=== PATIENT | male | born 1960 | race Caucasian/White ===

== ENCOUNTER 2021-04-29 12:35 | Emergency (ER) | payer OTHER, SELFPAY ==
[2021-04-29 12:40] VITALS: BP 194/92; PULSE 88; RESP 18; TEMP 36.6; O2SAT 100
--- NOTE | 2021-04-29 12:50 | ECG_ITS ---
Measurements Intervals [place] Rate: 82 P: 90 CT: 168 QRS: 27 QRSD: 106 T: 68 QT: 373 QTc: 437 Interpretive Statements SINUS RHYTHM ATRIAL PREMATURE COMPLEXES BASELINE ARTIFACT- I, II, AVR, AVL, AVF BORDERLINE ECG Electronically Signed On 04-29-2021 13:32:46 CDT by Estevan Oshea D.O.
--- NOTE | 2021-04-29 12:56 | ED.DIZZY ---
HPI - Dizziness General Chief Complaint: Dizziness Stated Complaint: DIZZY Time Seen by Provider: 04/29/21 12:36 Source: patient Mode of arrival: ambulatory Limitations: no limitations History of Present Illness HPI Narrative: 60-year-old male presents to [facility] with complaints of elevated blood pressure and intermittent dizziness since last evening. Patient reports that he checked his blood pressure last evening at home and it was running 160-180 systolically over 90s diastolically. Patient denies chest pain, shortness of breath, blurred vision, fever, bodies, chills, nausea, vomiting or diarrhea. Patient denies family history of cardiac events or strokes. Patient does smoke. Patient denies current dizziness. Patient reports that he has been under increased amount of stress due to his work. MD elicited complaint: dizziness History of similar symptoms: No Relieving factors: nothing Associated symptoms: denies other symptoms Related Data Home Medications Medication Instructions Recorded Confirmed No Home Medications 04/29/21 04/29/21 Allergies Allergy/AdvReac Type Severity Reaction Status Date / Time No Known Allergies Allergy Unverified 06/26/12 06:56 Review of Systems Constitutional: Constitutional: Denies chills, Denies fatigue, Denies fever(s) and Denies weakness Eyes: Eyes: Denies change in vision and Denies photophobia ENT: Denies sore throat Cardiovascular: Cardiovascular: Denies chest pain, Denies rapid heart rate, Denies radiating jaw, neck or arm pain and Denies slow heart rate Respiratory: Respiratory: Denies chest congestion, Denies cough, Denies dyspnea and Denies wheezing Gastrointestinal: Gastrointestinal: Denies abdominal pain, Denies diarrhea, Denies nausea and Denies vomiting Musculoskeletal: Musculoskeletal: Denies back pain Neurologic: Denies vertigo, Reports dizziness, Denies syncope and Denies numbness PMFSH Past Medical History Medical History Basal cell carcinoma of skin of trunk Extrinsic asthma, unspecified Syncope and collapse Social History Social History Smoking status: Smoker, status unknown Alcohol intake: current Comments At time of signature, I agree with nursing past medical, surgical, social and family history. There is no relevant family history pertinent to the presenting complaint. Exam Const: General: no acute distress Nutritional Appearance: well nourished Orientation/consciousness: patient oriented x3 Neck: Neck: normal visual inspection Resp: Effort & Inspection: normal respiratory effort, not labored and not tachypneic Auscultation: clear to auscultation bilaterally Cardio: Rate: regular rate, not bradycardic and not tachycardic Rhythm: regular rhythm and regular rhythm Heart sounds: no murmurs Skin: General skin exam: normal color, no jaundice and no pallor Rashes: no rashes Wounds: no wounds Neuro: General: patient oriented x3, moves all extremities and no meningeal signs Speech: normal speech Extrem: General: normal to inspection Psych: Appearance: grossly normal Mental Status: mental status grossly normal Affect: normal affect Attitude: cooperative Thought content: Yes Normal thought content present Course Vital Signs Vital signs: Vital Signs Temperature 36.6 C 04/29/21 12:40 Pulse Rate 88 04/29/21 12:40 Respiratory Rate 18 04/29/21 12:40 Blood Pressure 194/92 H 04/29/21 12:40 Pulse Oximetry 100 04/29/21 12:40 Temperature 36.6 C 04/29/21 12:40 Pulse Rate 88 04/29/21 12:40 Respiratory Rate 18 04/29/21 12:40 Blood Pressure 194/92 H 04/29/21 12:40 Pulse Oximetry 100 04/29/21 12:40 MDM - Dizziness MDM Narrative Medical decision making narrative: Attempted to call patient's primary care provider but office is currently closed for lunch. Informed patient due to symptoms of kiley
== END 2021-04-29 13:00 | disposition left against medical advice (07) ==
PROVIDERS: Emergency Provider Nurse Practitioner Family; PCP Family Medicine
DX: R03.0 Elevated blood-pressure reading, without diagnosis of hypertension (principal); Z85.828 Personal history of other malignant neoplasm of skin; J45.909 Unspecified asthma, uncomplicated
CPT/HCPCS: 93005; 99213; G0463

== ENCOUNTER → 2022-10-19 08:44 | Outpatient (CLI) | payer OTHER, SELFPAY ==
--- NOTE | ~2022-10-19 | CT_ITS ---
EXAMINATION: CT lung screening DATE: 10/19/2022 09:03 INDICATION: Personal history of nicotine dependence, current smoker with 40 pack year history TECHNIQUE: Computed tomography (CT) of the chest was performed without intravenous contrast. The dose -length product (DLP) was 186.48 mGy-cm. Automated exposure control and iterative reconstruction tech Divergence were employed. COMPARISON: None FINDINGS: There is mild emphysema. There is a 3 mm nodule of the right upper lobe. There is mild atel ectasis anteriorly in the upper lobes. No pleural effusion or pneumothorax. No pathologically enlarge d thoracic lymph nodes are identified. The heart size is normal. There is lipomatous hypertrophy of t he interatrial septum. Calcified coronary artery atherosclerosis is noted. There is a compression fra cture of T5. There is mild nodularity of the liver surface, consistent with cirrhosis. IMPRESSION: 1. Lung-RADS category 2: Benign appearance or behavior. Continue annual screening with noncontrast lo w-dose chest CT in 12 months. Reviewed, dictated and finalized at location L. NICAL SALES SUPPORT MANAGER IMPRESSION: 1. Lung-RADS category 2: Benign appearance or behavior. Continue annual screeni ng with noncontrast low-dose chest CT in 12 months.
== END ==
PROVIDERS: PCP Family Medicine; Visit Provider Family Medicine
DX: Z12.2 Encounter for screening for malignant neoplasm of respiratory organs (principal); F17.210 Nicotine dependence, cigarettes, uncomplicated
CPT/HCPCS: 71271

== ENCOUNTER 2025-04-28 00:33 | Day surgery (SDC) | payer OTHER, SELFPAY ==
[2025-04-22 09:05] VITALS: BMI 31.1
--- OUTSIDE RECORDS SUMMARY | 2025-04-28 00:39 | XMS_ITS | Referral Summary ---
Author Organization [address] [address] Care Team Providers Care Head Start Teacher Name Role Phone Unknown, Notinfile Primary Care Provider Unavail able Encounters Date Type Department Care Team Description 04/25/2025 12:30 PM CDT Office Visit [facility] at [address] [id number] Antonella Lu NP Right acute serous otitis media, recurrence not specified (Primary Dx); Elevated blood pressure reading in office with diagnosis of hypertension from Last 3 Months Allergies No known active allergies Medications lisinopriL (PRINIVIL,ZESTR IL) 10 mg tablet Take 1 tablet (10 mg total) by mouth daily Active fluticasone propionate (FLONASE) 50 mcg/actuation nasal sprayIndication s:Right acute serous otitis media, recurrence not specified Administer 2 sprays into each nostril daily 1 each Active Active Problems No known active problems Social History Tobacco Use Types Packs/Day Years Used Date Smoking Tobacco: Every Day Cigarettes Tobacco Cessation:Ready to Q uit: Yes Sex and Gender Information Value Date Recorded Sex Assigned at Not on file Legal Sex Male 7:45 AM CDT Gender Identity Not on file Sexual Orientation Not on file Last Filed Vital Signs Vital Sign Reading Time Taken Comments Blood Pressure 176/82 04/25/2025 12:21 PM CDT Pulse 60 04/25/2025 12:02 PM CDT Temperature 36.8 C (98.2 F) 04/25/2025 12:02 PM CDT Respiratory Rate 18 04/25/2025 12:0 2 PM CDT Oxygen Saturation 96% 04/25/2025 12: 02 PM CDT Inhaled Oxygen Concentration - - Weight 107.5 kg (236 lb 14.4 oz) 2024 12:02 PM CDT Height - - Body Mass Index - - Plan of Treatment Not on file Insurance [facility] ADVANTAGE CHOICE PPO Care Teams Head Start Teacher Relationship Specialty Start Date End Date Unknown, Notinfile PCP - General 04/25/25
--- OUTSIDE RECORDS SUMMARY | 2025-04-28 00:39 | XMS_ITS | Clinical Summary ---
Author Organization [facility] Address [address] [place] [address] Care Team Providers Care Day Care Center Director Name Role Phone Unavailable Primary Care Provider Unavailabl e Immunizations Immunization Administration Dates Next Due Covid-19, Mrna, Lnp-s, Pf, 30 Mcg/0.3 Ml Dose (P fizer) 09/09/2021 Social History Tobacco Use Types Packs/Day Years Used Date Smoking Tobacco: Never Assessed Sex and Gender Information Value Date Recorded Sex Assigned at Not on file Legal Sex Male 2:01 PM LEGAL ADMINISTRATIVE ASSISTANT Gender Identity Not on file Sexual Orientation Not on file Plan of Treatment Health Maintenance Due Date Last Done Comments Hepatitis C Virus (HCV) Screening 1960 TdaP Immunization 1960 Colonoscopy 2004 Colorectal Cancer Screening 2004 Cologuard 2009 Immunochemical Fecal Occult Blood 2009 Pneumococcal Immunization (5 0+ years) (1 of 1 - PCV) 2009 Zoster Immunization (1 of 2) 2009 PSA Discussion 2014 Influenza Immunization (#1) 2024 SARS-COV-2 Immunization ( season) 2024 09/09/2021, 01/01/2021, 12/07/2020 Respiratory Syncytial Virus (RSV) Immunization (Adult) (1 - 1-dose 75+ series) 2034 Hepatitis B Immunization Aged Out No longer eligible based on patient's age to complete this topic Meningococcal Immunization (ACWY) Aged Out No longer eligible b ased on patient's age to complete this topic Pneumococcal Immunization Combined Aged Out No longer eligible b ased on patient's age to complete this topic Rotavirus Immunization Aged Out No lo nger eligible based on patient's age to complete this topic
--- OUTSIDE RECORDS SUMMARY | 2025-04-28 00:39 | XMS_ITS | Clinical Summary ---
Author Organization [facility] [address] [address] Care Team Providers Care Independent Agent Music Education Name Role Phone Unknown, Notinfile Primary Care Provider Unavail able Allergies No known active allergies Medications lisinopriL (PRINIVIL,ZESTR IL) 10 mg tablet Take 1 tablet (10 mg total) by mouth daily Active fluticasone propionate (FLONASE) 50 mcg/actuation nasal sprayIndication s:Right acute serous otitis media, recurrence not specified Administer 2 sprays into each nostril daily 1 each 5 Active Active Problems No known active problems Encounters Date Type Department Care Team Description 04/25/2025 12:30 PM CDT Office Visit [facility] at [address] [phone] Antonella Lu NP Right acute serous otitis media, recurrence not specified (Primary Dx); Elevated blood pressure reading in office with diagnosis of hypertension from Last 3 Months Social History Tobacco Use Types Packs/Day Years Used Date Smoking Tobacco: Every Day Cigarettes Tobacco Cessation:Ready to Q uit: Yes Sex and Gender Information Value Date Recorded Sex Assigned at Not on file Legal Sex Male 7:45 AM CDT Gender Identity Not on file Sexual Orientation Not on file Obstetrics History Last Filed Vital Signs Vital Sign Reading [...] Mass Index - - Plan of Treatment Health Maintenance Due Date Last Done Comments Colon Cancer Screening-Colonoscopy 1959 Depression Screening 1959 Fall Risk Assessment 1959 Hepatitis C Screening 1959 Prostate Cancer Screening-PSA 1959 DTaP/Tdap/Td Vaccine (1 - Tdap) 1970 Hepatitis B Screening 1977 Pneumococcal vaccine 65+ (1 of 2 - PCV) 1978 Zoster Vaccine (1 of 2) 2009 Abdominal Aortic Aneurysm (A AA) Screen 2024 Covid-19 Vaccine ( season) 2024 09/09/2021, 01/01/2021, 12/07/2020 Well Visit 65+ 2024 Influenza Vaccine (#1) 2025 10/10/[address] [place] [address] ADVANTAGE CHOICE PPO Care Teams Independent Agent Music Education Relationship Specialty Start Date End Date Unknown, Notinfile PCP - General 04/25/25
[2025-04-28 07:59] VITALS: BP 166/109; PULSE 87; RESP 18; TEMP 36; O2SAT 100
[2025-04-28] MEDS: LACTATED RINGERS 1,000 ML 150 ML IV CONT (08:14)
--- NOTE | 2025-04-28 08:45 | P.PNAN_ITS ---
Anes - Initial Pre Proc Eval Procedure: Operation Date: 04/28/25 09:15 Proposed Procedures p Screening Colonoscopy - Ronald Pringle MD Date/Time: 04/28/25 08:45 Surgeon: Ronald Pringle MD Pre Op Diagnosis: Encounter for screening for malignant neoplasm of Patient Data Age: 64 Gender: M Height: 1.83 m Weight: 105 kg Last Vital Signs Temp 96.8 F L 04/28/25 07:59 Pulse 87 04/28/25 07:59 Resp 18 04/28/25 07:59 BP 166/109 H 04/28/25 07:59 Pulse Ox 100 04/28/25 07:59 O2 Del Method Room Air 04/28/25 07:59 Allergies Allergy/AdvReac Type Severity Reaction Status Date / Time No Known Allergies Allergy Verified 04/28/25 07:57 Home Medications ?Medication ?Instructions ?Recorded ?Confirmed ?Type calcipotriene 0.005 % topical cream 1 applic topical QHS #120 grams 10/10/24 04/28/25 Rx lisinopril 10 mg tablet 10 mg PO DAILY #90 tabs 10/10/24 04/28/25 Rx triamcinolone acetonide 0.1 % 1 applic topical QID #80 grams 10/10/24 04/28/25 Rx topical cream budesonide-formoterol HFA 160 2 puff inhalation Q12H PRN 04/22/25 04/22/25 History mcg-4.5 mcg/actuation aerosol shortness of breath inhaler (Symbicort) Patient hx anesthesia problems: none Family hx anesthesia problems: none Results Review: All pre-operative results and documents have been reviewed as part of the pre- operative evaluation. [facility] Past Medical History Medical History HTN (hypertension), benign Basal cell carcinoma of skin of trunk Extrinsic asthma, unspecified Syncope and collapse Social History Social History Smoking packs per day: 0.25 Smoking cigarettes per day: 5.0 Smoking status: Current every day smoker Alcohol intake: former Lack of Transportation: No Lack of Food: Never True Current Housing: I Have Housing Concerned About Future Housing: No Difficulty Paying Gas/Electric Bills: No Difficulty Paying for Meds: No Currently Unemployed: No Education: Bachelor's Degree Difficulty w/ Childcare or Family Care: No Anes - Eval Final PreProcedure Day of Procedure 04/28/25 08:45 Patient weight: obese Lungs: normal air movement Airway: Mallampati scale class III Neurological: alert and oriented Last oral intake: >/= 8 hours ASA classification: III Emergent: no Anesthetic plan: proceed Anesthesia type and monitoring: general GIVS and standard monitoring Results Review: All pre-operative results and documents have been reviewed as part of the pre- operative evaluation. HTN, pre DM, asthma, active smoker 5-6 cigs/day, smoked at 630 am. Pt can mow grass, no cp or sob. Informed Consent: The patient's anesthetic plan and its attendant risks and benefits were discussed with the patient/family/POA. Questions were solicited and answers provided to the satisfaction of the patient/family/POA.
--- NOTE | 2025-04-28 08:58 | SUR.PREOP ---
0830: DR JAMES MADE AWARE OF BLOOD PRESSURE 166/109, NO NEW ORDERS, DR WHEAT PT.
--- NOTE | 2025-04-28 09:04 | PM.IMHP ---
H&P: HPI History of Present Illness Date/Time: 04/28/25 09:04 Chief Complaint: Screening colonoscopy Narrative: This is the patient's first colonoscopy. There are no GI symptoms and there is no family history of colorectal cancer. Review of Systems Review of Systems: All systems reviewed & are unremarkable except as noted in HPI and below [facility] Past Medical History Medical History HTN (hypertension), benign Basal cell carcinoma of skin of trunk Extrinsic asthma, unspecified Syncope and collapse Social History Social History Smoking packs per day: 0.25 Smoking cigarettes per day: 5.0 Smoking status: Current every day smoker Alcohol intake: former Lack of Transportation: No Lack of Food: Never True Current Housing: I Have Housing Concerned About Future Housing: No Difficulty Paying Gas/Electric Bills: No Difficulty Paying for Meds: No Currently Unemployed: No Education: Bachelor's Degree Difficulty w/ Childcare or Family Care: No Meds Home Medications and Allergies Home Medications ?Medication ?Instructions ?Recorded ?Confirmed ?Type calcipotriene 0.005 % topical cream 1 applic topical QHS #120 grams 10/10/24 04/28/25 Rx lisinopril 10 mg tablet 10 mg PO DAILY #90 tabs 10/10/24 04/28/25 Rx triamcinolone acetonide 0.1 % 1 applic topical QID #80 grams 10/10/24 04/28/25 Rx topical cream budesonide-formoterol HFA 160 2 puff inhalation Q12H PRN 04/22/25 04/22/25 History mcg-4.5 mcg/actuation aerosol shortness of breath inhaler (Symbicort) Allergies Allergy/AdvReac Type Severity Reaction Status Date / Time No Known Allergies Allergy Verified 04/28/25 07:57 Vital Signs Vital Signs - 24 hr 04/28/25 07:59 Temperature 96.8 F L Pulse Rate 87 Respiratory Rate 18 Blood Pressure 166/109 H Pulse Oximetry 100 Oxygen Delivery Room Air Exam Const: General: cooperative and healthy appearing Resp: Effort & Inspection: normal respiratory effort and able to speak in complete sentences Auscultation: clear to auscultation bilaterally Cardio: Rate: regular rate Rhythm: regular rhythm GI: Inspection: normal to inspection GI Palp: No No hepatosplenomegaly present Auscultation: normal bowel sounds Rectal Exam: deferred Skin: General skin exam: normal color Psych: Appearance: grossly normal Mental Status: mental status grossly normal Assessment and Plan Assessment and plan (1) Colon cancer screening: Code(s): Z12.11 - Encounter for screening for malignant neoplasm of colon Status: Acute Assessment and Plan: The patient is deemed a good candidate for the procedure. Consent signed. Will proceed.
[2025-04-28 10:30] VITALS: BP 142/84; PULSE 72; RESP 22; O2SAT 100
--- NOTE | 2025-04-28 10:34 | S_PTH ---
PATIENT: Deonte Pagan LOC: [facility] U#:[id number] AGE/SX: 64/M ROOM: RE04/28/[address]: Ronald Pringle MD : 1960 BED: DIS: 04/28/2025 SPEC #: [id number] RECD: 04/28/25 11:00 STATUS: ARTURO RE #: [id number] OSCAR: 04/28/25 10:[address]: Ronald Pringle DEPT: [facility] [place] Surgical RECD BY: Tej Stark ENTERED: 04/28/25 11:04 SP TYPE: Surgical OTHR DR: Haris Elizabeth MD Tissues: A - Colon Polypectomy B - Colon Polypectomy C - Rectal Polyp D - Rectal Polyp E - Colon Polypectomy F - Colon Polypectomy G - Colon Polypectomy H - Colon Polypectomy Procedures: Hematoxylin and Eosin Stain Gross and Microscopic Level 4
[2025-04-28 10:40] VITALS: BP 146/85; PULSE 72; RESP 22; O2SAT 100
[2025-04-28 10:50] VITALS: BP 143/83; PULSE 69; RESP 18; O2SAT 100
== END 2025-04-28 11:04 | disposition home or self-care (01) ==
PROVIDERS: PCP Family Medicine; Referring Provider Family Medicine; Visit Provider Internal Medicine Gastroenterology
PROC: 0DJD8ZZ Inspection of Lower Intestinal Tract, Via Natural or Artificial Opening Endoscopic (ICD-10-PCS; CPT 45378; principal; 2025-04-28 09:15)
DX: Z12.11 Encounter for screening for malignant neoplasm of colon (principal); D12.5 Benign neoplasm of sigmoid colon; D12.3 Benign neoplasm of transverse colon; D12.8 Benign neoplasm of rectum; D12.4 Benign neoplasm of descending colon; D12.2 Benign neoplasm of ascending colon; D12.0 Benign neoplasm of cecum; K63.5 Polyp of colon; K57.30 Diverticulosis of large intestine without perforation or abscess without bleeding; I10 Essential (primary) hypertension; E11.9 Type 2 diabetes mellitus without complications; J45.909 Unspecified asthma, uncomplicated; F17.210 Nicotine dependence, cigarettes, uncomplicated; E66.9 Obesity, unspecified; Z68.31 Body mass index [BMI] 31.0-31.9, adult; Z79.51 Long term (current) use of inhaled steroids; Z85.828 Personal history of other malignant neoplasm of skin
CPT/HCPCS: 45390; 88305; J2003; J2704; J7120